=== PATIENT | male | born 1985 | race Hispanic/Latino ===

== ENCOUNTER → 2018-10-07 | Outpatient (CLI) | payer OTHER ==
[~2018-10-07] MED LIST: GADODIAMIDE 10 MMOL/20 ML VIAL IV ONE
== END | disposition home or self-care (01) ==
LOC: RAH 13:15
PROVIDERS: ATTEND Family Medicine
DX: R90.82 White matter disease, unspecified (principal)
CPT/HCPCS: 70543; 70553; A9579

== ENCOUNTER 2019-01-20 20:38 | Emergency (ER) | payer OTHER ==
[2019-01-20] MEDS ORDERED: AMOXICILLIN/POTASSIUM CLAV 875-125 TABLET PO ONE (21:09)
[2019-01-20] MEDS ORDERED: DIPHENHYDRAMINE HCL 25 MG CAPSULE ONE (21:10)
[2019-01-20] MEDS ORDERED: ONDANSETRON ODT 4 MG TAB ONE (21:10)
[2019-01-20] MEDS ORDERED: IBUPROFEN 200 MG TAB ONE (21:10)
[2019-01-20 21:35] LABS: RAPID GROUP A STREP NEGATIVE (NEGATIVE)
== END 2019-01-20 22:17 | disposition home or self-care (01) ==
LOC: EDH 20:38
DX: H66.002 Acute suppurative otitis media without spontaneous rupture of ear drum, left ear (principal); R11.0 Nausea; K59.00 Constipation, unspecified; R20.0 Anesthesia of skin
CPT/HCPCS: 87804 ×2; 87880; 99284; Q0163

== ENCOUNTER 2019-02-16 18:19 | Emergency (ER) | payer OTHER | END 2019-02-16 19:35 | disposition home or self-care (01) | LOC: EDH 18:19 | DX: J02.9 Acute pharyngitis, unspecified (principal) | CPT/HCPCS: 87880 ==

== ENCOUNTER 2019-06-07 05:02 | Emergency (ER) | payer OTHER ==
[2019-06-07 05:19] LABS: BASOPHILS % (AUTO) 0.5 % (0.0-5.0); EOSINOPHILS % (AUTO) 0.4 % (0.0-8.0); HEMATOCRIT 41.1 % (42-54); MEAN CORPUSCULAR HEMOGLOBIN 28.8 pg (27.0-33.0); MEAN CORPUSCULAR HGB CONC 34.3 g/dL (32.0-36.0); MONOCYTES % (AUTO) 4.6 % (3.0-13.0); NEUTROPHILS % (AUTO) 55.3 % (40.0-77.0); PLATELET COUNT (AUTO) 174 K/uL (130-400); RED BLOOD CELL COUNT(AUTO) 4.89 MIL/uL (4.50-6.20); RED CELL DISTRIBUTION WIDTH 11.6 % (11.0-15.5); WHITE BLOOD COUNT (AUTO) 5.5 K/uL (4.8-10.8)
[2019-06-07] MEDS ORDERED: TETANUS/DIPHTHERIA TOXOID [ADULT] 0.5 ML VIAL IM ONE (05:26)
[2019-06-07 05:29] LABS: CREATININE 1.1 mg/dL (0.5-1.5); POTASSIUM 5.4 mmol/L (3.5-5.1)
[2019-06-07 05:33] LABS: BILIRUBIN,TOTAL 0.4 mg/dL (0.2-1.0); TOTAL PROTEIN, SERUM 7.5 g/dL (6.0-8.3)
[2019-06-07] MEDS ORDERED: OCTYL 2-CYANOACRYLATE 1 EACH TP ONE (06:30)
[2019-06-07] MEDS ORDERED: ONDANSETRON ODT 4 MG TAB ONE (06:40)
== END 2019-06-07 06:48 | disposition home or self-care (01) ==
LOC: EDH 05:02
DX: S01.81XA Laceration without foreign body of other part of head, initial encounter (principal); S80.12XA Contusion of left lower leg, initial encounter; W10.8XXA Fall (on) (from) other stairs and steps, initial encounter; Y93.89 Activity, other specified; Y92.89 Other specified places as the place of occurrence of the external cause; Y99.8 Other external cause status
CPT/HCPCS: 12052; 36415; 70450; 71045; 72170; 80053; 85025; 90471; 90714